=== PATIENT | male | born 1930 ===

== ENCOUNTER 2017-10-19 09:19 | Outpatient (RCR) | payer MEDICARE, OTHER ==
[~2017-10-19 09:19] MED LIST: ALLO-2 PO; AMLO-96 PO; AMLO-99 PO; ASPI-757 PO; BLOO-725 PO; DOCU-202 PO; DOCU-416 PO; ENAL20TA99 PO; HYDR-2966 PO; METF-411 PO; METXR500 PO; NYST15CR33 TP; OXYC-854 PO; PER PO; SIMV-49 PO; SITA100T PO; TAMS0.4C70 PO; TRIA15OI20 TP
[2017-10-19 09:41] VITALS: BP 157/66
--- NOTE | 2017-10-19 12:02 | ONC Progress Note - NP.Halsey ---
Patient History Date of Service Oct 19, 2017 Reason For Visit/HPI Patient is seen today for follow-up of his malignant melanoma of the scalp. Patient reports that overall he is feeling well and has no symptoms such as shortness of breath, cough, nausea or vomiting, diarrhea or constipation. He reports that his has been ill and he has been her care provider. He was scheduled to follow with Dr. Alvarez next week and this appointment was rescheduled to the end of November. Patient previously has followed with Dr. Villarreal for his melanoma resection of the scalp. Patient does have a keratotic area on his scalp that is itchy. He reports that he cannot visualize the top of his head very well. 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 The patient has been seen by Dr. Gallagher, his territory service representative, who did a shave biopsy of this pigmented lesion of the scalp on June 30, 2016, and the pathology came back positive for malignant melanoma, nodular type, with at least 2.7 mm Breslow depth, at least Yonathan level IV. No lymphovascular invasion. No perineural invasion. Ulceration was present. Surgical margins with tumor extending to the deep peripheral margin. It was staged at least pT2b Nx Mx. The patient after that had been seen by Dr. Denson for wide local excision and sentinel lymph node biopsy. He had wide surgical excision on August 01, 2016 and the pathology came back positive for superficial spreading melanoma extending to within 0.5 cm of the closest lateral margin. On the August, the patient had wide excision with skin graft and sentinel lymph node biopsy and six lymph nodes were negative for metastasis and the wide surgical excision showed superficial spreading melanoma present to within 0.1 cm of the lateral margin with atypical melanocytes present at the lateral margin. He ended by having re-excision on September 15, 2016 and final diagnosis was negative for residual malignancy. Tumor was staged as stage 2b (pT3b pN0 cM0). Patient has 2 hyperpigmented areas on the scalp outside the surgical resection area that are currently being monitored. I will refer patient to Dr. Villarreal today for further evaluation as I believe it has increased in size Medical History Family History: FH: cancer MOTHER, , Age:85 Psychosocial History Social History He is with 3 children. He is retired teacher. He denies any abuse of tobacco alcohol or drugs Smoking History: No Smoking Status: Never Smoker Exposure to Second Hand Smoke?: No Medications and Allergies Reported Medications Hydrochlorothiazide (HYDROCHLOROTHIAZIDE) 25 Mg Tablet, 1 TAB PO QDAY, TAB 08/05/16 Simvastatin (SIMVASTATIN) 20 Mg Tablet, 20 MG PO HS, TAB 08/05/16 Sitagliptin Phosphate (JANUVIA) 100 Mg Tablet, 100 MG PO QDAY 08/05/16 Allopurinol (Allopurinol) 300 Mg Tablet, 1 TAB PO QDAY 08/05/16 Amlodipine Besylate (AMLODIPINE BESYLATE) 10 Mg Tablet, 5 TAB PO QDAY, TAB 08/05/16 Enalapril Maleate (ENALAPRIL MALEATE) 20 Mg Tablet, 20 MG PO BID 08/05/16 Tamsulosin Hcl (TAMSULOSIN HCL) 0.4 Mg Cap.er.24h, 0.4 MG PO QDAY, CAP 08/05/16 Metformin Hcl (METFORMIN HCL) 500 Mg Tablet, 2 TAB PO BID, TAB 08/05/16 Aspirin (ASPIRIN) 325 Mg Tablet, 325 MG PO QDAY, TAB 08/05/16 Blood Sugar Diagnostic (CONTOUR) 1 Each Strip, 1 STRIP PO Q3D, #50 10/19/15 Allergies: Coded Allergies: No Known Drug Allergies (Unverified , 09/01/16) Review of System/Physical Exam Review of Systems All Systems Reviewed/Normal: Yes, Except as Noted Hematologic: Positive for Fatigue (age related), Positive for Weakness (age related) Skin: Positive for Dry Skin (area on the top of the scalp that is dry and itchy.) Physical Exam Vital Signs Temperature: 97.2 Pulse: 90 BP Systolic: 157 BP Diastolic: 66 Respiratory Rate: 16 O2 SAT: 92 O2 Delivery: Height (inches) 66.54 Weight lb: 186 Weight oz: Weight Kg (Ladarius): Pain: 0 ECOG Score: 1 General: Stable, Well Developed, Well Nourished, Not In Acute Distress HEENT: No Trauma Neck: Supple Heart: Regular Rate (blood pressure is slightly elevated today), Regular Rhythm , No Gallops, Murmurs (patient has a grade 1 systolic murmur which she reports having since age 17) Abdomen: Soft and Nontender, No Hepatosplenomegaly, No Masses, Other (bowel sounds are active) Extremities: No Cyanosis, No Clubbing Lymphadenopathy: No Cervical, No Subclavicular, No Axillary Psychiatric: Mood appears normal, Affect appears normal Skin: Other (patient has a elevated keratotic area on top of the scalp outside the previous resection field. He also has a asymmetric hyperpigmented area outside of previous resection that appears to be slightly larger than last exam. ) Diagnostic Studies Diagnostic Studies Laboratory CBC drawn on 10/17/2017 at an outside clinic shows a white cell count of 7400, hemoglobin of 14.5, hematocrit 45.3, MCV 98, platelet level 221,000. His chemistry is unremarkable with exception of a random glucose of 145. Assessment and Plan Assessment & Plan 1. 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 The patient had initial biopsy on June 30, 2016 followed by wide surgical excision on August 01, 2016 which was followed by wide surgical excision and sentinel lymph node biopsy done on August 25, 2016 with reexcision for close margins on September 15, 2016. Final pathology was positive for malignant melanoma at least 2.7 mm Breslow thickness (Yonathan level at least 4). No lymphovascular invasion. No perineural invasion with positive ulceration. Melanoma was nodular type. Reexcision came back negative for residual malignancy. Six lymph nodes were negative for metastasis. Given his performance status the patient was not considered candidate for interferon therapy. On exam today patient has a asymmetrical hyperpigmented area just outside of the resection area that appears to be slightly larger than previous exam. Patient previously had 2 dark hyperpigmented areas that we have been monitoring. I will refer patient to Dr. Villarreal for evaluation. Patient is scheduled to follow with Dr. Alvarez the end of November for a full body exam. Patient will follow in three months with CBC and chem panel at that time. He will continue to follow with primary care Vernell Concepcion and Dr. Alvarez as scheduled. 2. Hypertension on treatment. And adjusted by primary care. Slightly elevated today. She has been referred to primary care for evaluation 3. Diabetes mellitus on treatment. Managed by primary 4. Gout on allopurinol. No symptoms noted today 5. Hypercholesterolemia on treatment. Managed by primary PLAN 1. Continue treatment. 2. Patient to return in three months with CBC and chem panel. 3. Patient is to contact us for any new concerns or complaints. 4. For all to Dr. Villarreal for evaluation of 2 areas on the scalp. I personally spent a total of 20 minutes. Of that 20 minutes was counseling/ coordination of patient's care. See my note above for details. Copies to: VERNELL CONCEPCION; JUAN DENSON MD, NANCY J FNP-BC, ONC Oct 19, 2017 12:02
== END 2018-01-16 ==
LOC: ONC 09:19
PROVIDERS: ATTEND Internal Medicine Hematology
DX: Z85.828 Personal history of other malignant neoplasm of skin (principal); I10 Essential (primary) hypertension; E78.00 Pure hypercholesterolemia, unspecified; M10.9 Gout, unspecified; R21 Rash and other nonspecific skin eruption; R51 Headache; Z79.82 Long term (current) use of aspirin; Z79.899 Other long term (current) drug therapy; R53.83 Other fatigue; R53.1 Weakness
CPT/HCPCS: 99212

== ENCOUNTER → 2017-11-07 | Outpatient (CLI) | payer MEDICARE, OTHER ==
[~2017-11-07] MED LIST changes: +METF-410 PO; -METF-411 PO
== END ==
LOC: LAB 11:32
PROVIDERS: ATTEND Surgery
DX: L82.1 Other seborrheic keratosis (principal)
CPT/HCPCS: 88305

== ENCOUNTER → 2018-01-12 | Outpatient (CLI) | payer MEDICARE, OTHER ==
[~2018-01-12] MED LIST changes: +ATROPINE SUL 1 MG/ML VIAL IVP PRN; +DOBUTamine/DEXT 250 MG/250 ML 250 ML IVPB ONE; -METF-410 PO; +METF-411 PO; +METOPROLOL TART 5 MG/5 ML VIAL IVP PRN; +NS 0.9% 20 ML SDV IVP PRN
--- NOTE | 2018-01-12 12:14 | RT STRESS TEST REPORT ---
FAC[place]: [facility] [place] NAME: JONES HAGAN : [id number] MR: [id number] V: [id number] EXAM DATE: ORDERING PHYSICIAN: VERNELL VARGAS TECHNOLOGIST: Chantal Acquisition Time: 2018-01-12 11:26:00 Total Exercise Time: 00:08:33 Test Indications: Murmur Medications: enalapril allopurinol tamsolosin simvastatin hydrochlorothiazide amlodipine gimpiride aspirin Protocol: DOBUTAMINE Max HR: 122 BPM 91% of Pred: 134 BPM Max BP: 161/054 mmHG Max Work Load: 1.0 METS Confirmed by JOSELITO SIMPSON ([id number]) on 01/12/2018 12:14:39 PM Referred By: Vernell Vargas Overread By: JOSELITO SIMPSON
== END ==
LOC: RAD 01-11 01:21
PROVIDERS: ATTEND Nurse Practitioner Family
DX: I38 Endocarditis, valve unspecified (principal); I49.9 Cardiac arrhythmia, unspecified
CPT/HCPCS: 93017; 93325; 93350

== ENCOUNTER 2018-01-18 09:30 | Outpatient (RCR) | payer MEDICARE, OTHER ==
[~2018-01-18 09:30] MED LIST changes: -ATROPINE SUL 1 MG/ML VIAL IVP PRN; -DOBUTamine/DEXT 250 MG/250 ML 250 ML IVPB ONE; -METOPROLOL TART 5 MG/5 ML VIAL IVP PRN; -NS 0.9% 20 ML SDV IVP PRN
[2018-01-18 09:35] VITALS: BP 181/72
--- NOTE | 2018-01-18 17:17 | ONCOLOGY FOLLOW UP NOTE ---
EVENT DATE: January 18, 2018 DIAGNOSES 1. 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 2. Hypertension. 3. Diabetes mellitus. 4. Gout. 5. Hypercholesterolemia. CHIEF COMPLAINT Patient is here today for followup of his malignant melanoma of the scalp. ONCOLOGY HISTORY The patient is an 88-year-old male who was seen by his wastewater treatment plant instructor for a pigmented lesion of the scalp. The patient has been seen by Dr. Gallagher, his wastewater treatment plant instructor, who did a shave biopsy of this pigmented lesion of the scalp on June 30, 2016, and the pathology came back positive for malignant melanoma, nodular type, with at least 2.7 mm Breslow depth, at least Yonathan level IV. No lymphovascular invasion. No perineural invasion. Ulceration was present. Surgical margins with tumor extending to the deep peripheral margin. It was staged at least pT2b Nx Mx. The patient after that had been seen by Dr. Mars for wide local excision and sentinel lymph node biopsy. He had wide surgical excision on August 01, 2016 and the pathology came back positive for superficial spreading melanoma extending to within 0.5 cm of the closest lateral margin. On the August, the patient had wide excision with skin graft and sentinel lymph node biopsy and six lymph nodes were negative for metastasis and the wide surgical excision showed superficial spreading melanoma present to within 0.1 cm of the lateral margin with atypical melanocytes present at the lateral margin. He ended by having re-excision on September 15, 2016 and final diagnosis was negative for residual malignancy. So, the patient's tumor was staged as stage 2b (pT3b pN0 cM0). HISTORY OF PRESENT ILLNESS Patient is here today for followup of his malignant melanoma of the scalp. He is doing currently and totally asymptomatic except for increased frequency of urine which is chronic for him. PAST MEDICAL HISTORY 1. Type 2 diabetes. 2. Gout. 3. Hypercholesterolemia. 4. Hypertension. PAST SURGICAL HISTORY 1. Tonsillectomy. 2. Cholecystectomy. 3. Resection of melanoma of the scalp in 2016. FAMILY HISTORY Mother had uterine cancer. SOCIAL HISTORY The patient is with three children. He is a retired teacher. He denies any abuse of tobacco, alcohol or drugs. CURRENT MEDICATIONS 1. Hydrochlorothiazide 25 mg tablet daily. 2. Simvastatin 20 mg daily. 3. Januvia 100 mg daily. 4. Allopurinol 300 mg daily. 5. Amlodipine 10 mg daily. 6. Enalapril 20 mg twice daily. 7. Tamsulosin 0.4 mg daily. 8. Metformin 1000 mg twice daily. 9. Aspirin 325 mg daily. ALLERGIES No known drug allergies. REVIEW OF SYSTEMS CONSTITUTIONAL: No appetite or weight change. No fever, chills or sweating. No recent infection. HEENT: Ears: No tinnitus or hearing problem. Nose: No nasal discharge or epistaxis. Throat: No sore throat or mouth ulcers. Eyes: No diplopia or visual changes. RESPIRATORY: No shortness of breath. No cough, expectoration or hemoptysis. CARDIOVASCULAR: No chest pain, orthopnea, or paroxysmal nocturnal dyspnea (PND) . No edema. No palpitations. GASTROINTESTINAL: No nausea or vomiting. No diarrhea or constipation. No change in bowel movements. No heartburn or swallowing difficulties. No abdominal pain. No jaundice. No hematemesis, melena or rectal bleeding. GENITOURINARY: He has increased frequency of urine. MUSCULOSKELETAL: The patient has pain in the right shoulder. NEUROLOGICAL: No tingling or numbness in the hands or feet. No headaches or convulsions. HEMATOLOGIC/LYMPHATIC: He bruises easily. SKIN: No skin rash or lumps. PSYCHIATRIC: No anxiety or depression. PHYSICAL EXAMINATION GENERAL: Looks stable. Well-developed, well-nourished, and in no acute distress. VITAL SIGNS: Blood pressure 181/72, pulse 88 per minute, respirations 16 per minute, temperature 96.9, pulse ox 93% on room air. HEENT: Head: Atraumatic. No sinus tenderness to palpation. Eyes: No icterus or conjunctivitis. Mouth and throat: No oral thrush or mucositis. NECK: Supple. No cervical or supraclavicular lymphadenopathy. LUNGS: Clear to auscultation and percussion bilaterally. HEART: Regular rate and rhythm. No gallops, murmurs, clicks or rubs. ABDOMEN: Soft and lax. No tenderness. No hepatosplenomegaly. No masses. EXTREMITIES: No cyanosis, clubbing or edema. LYMPHATICS: No peripheral lymphadenopathy. NEUROLOGICAL: Conscious, alert and oriented times three. No focal motor or sensory deficits. PSYCHIATRIC: Mood and affect appear normal. SKIN: The skin graft is healing well. There are some skin pigmentation areas of his scalp. DIAGNOSTIC DATA CBC showed a white count of 7.1, hemoglobin 13.9, hematocrit 41.6, platelets 185 ,000. Chem panel is totally normal except blood sugar 180. Other parameters are normal. ASSESSMENT 1. 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 The patient had initial biopsy on June 30, 2016 followed by wide surgical excision on August 01, 2016, followed by wide surgical excision and sentinel lymph node biopsy done August 25, 2016 with reexcision for close margins on September 15, 2016. Final pathology was positive for malignant melanoma at least 2.7 mm Breslow thickness (Yonathan level at least 4). No lymphovascular invasion. No perineural invasion with positive ulceration. Melanoma was nodular type. Reexcision came back negative for residual malignancy. Six lymph nodes were negative for metastasis. Given his performance status the patient is not a candidate for interferon therapy and he is doing fine currently. He is in complete remission so far. Patient was advised to continue followup with his wastewater treatment plant instructor. I am planning to continue surveillance. I will see him again in three months with CBC and chem panel at that time. 2. Hypertension on treatment. 3. Diabetes mellitus on treatment. 4. Gout on allopurinol. 5. Hypercholesterolemia on treatment. PLAN 1. Continue followup. 2. Patient to return in three months with CBC and chem panel. 3. Patient is to contact us for any new concern or complaints. CHAPO
== END 2018-03-29 13:48 | disposition home or self-care (01) ==
LOC: ONC 09:30
PROVIDERS: ATTEND Internal Medicine Hematology
DX: Z85.828 Personal history of other malignant neoplasm of skin (principal); I10 Essential (primary) hypertension; E78.00 Pure hypercholesterolemia, unspecified; M10.9 Gout, unspecified; E11.9 Type 2 diabetes mellitus without complications; Z79.899 Other long term (current) drug therapy
CPT/HCPCS: 99212

== ENCOUNTER 2018-04-26 09:21 | Outpatient (RCR) | payer MEDICARE, OTHER ==
[~2018-04-26 09:21] MED LIST changes: +AMLO-111 PO; +AMLO-113 PO; -AMLO-96 PO; -AMLO-99 PO; -METF-411 PO; +METF-450 PO
[2018-04-26 09:27] VITALS: BP 163/66
--- NOTE | 2018-04-26 16:55 | ONCOLOGY FOLLOW UP NOTE ---
EVENT DATE: April 26, 2018 DIAGNOSES 1. 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 2. Hypertension. 3. Diabetes mellitus. 4. Gout. 5. Hypercholesterolemia. CHIEF COMPLAINT Patient is here today for followup of his malignant melanoma of the scalp. ONCOLOGY HISTORY The patient is an 88-year-old male who was seen by his teradata developer for a pigmented lesion of the scalp. The patient has been seen by Dr. Gallagher, his teradata developer, who did a shave biopsy of this pigmented lesion of the scalp on June 30, 2016, and the pathology came back positive for malignant melanoma, nodular type, with at least 2.7 mm Breslow depth, at least Yonathan level IV. No lymphovascular invasion. No perineural invasion. Ulceration was present. Surgical margins with tumor extending to the deep peripheral margin. It was staged at least pT2b Nx Mx. The patient after that had been seen by Dr. Mars for wide local excision and sentinel lymph node biopsy. He had wide surgical excision on August 01, 2016 and the pathology came back positive for superficial spreading melanoma extending to within 0.5 cm of the closest lateral margin. On the August, the patient had wide excision with skin graft and sentinel lymph node biopsy and six lymph nodes were negative for metastasis and the wide surgical excision showed superficial spreading melanoma present to within 0.1 cm of the lateral margin with atypical melanocytes present at the lateral margin. He ended by having re-excision on September 15, 2016 and final diagnosis was negative for residual malignancy. So, the patient's tumor was staged as stage 2b (pT3b pN0 cM0). HISTORY OF PRESENT ILLNESS Patient is here today for followup of his malignant melanoma of the scalp. He is doing fine currently and he is totally asymptomatic. PAST MEDICAL HISTORY 1. Type 2 diabetes. 2. Gout. 3. Hypercholesterolemia. 4. Hypertension. PAST SURGICAL HISTORY 1. Tonsillectomy. 2. Cholecystectomy. 3. Resection of melanoma of the scalp in 2016. FAMILY HISTORY Mother had uterine cancer. SOCIAL HISTORY The patient is with three children. He is a retired teacher. He denies any abuse of tobacco, alcohol or drugs. CURRENT MEDICATIONS 1. Hydrochlorothiazide 25 mg tablet daily. 2. Simvastatin 20 mg daily. 3. Januvia 100 mg daily. 4. Allopurinol 300 mg daily. 5. Amlodipine 10 mg daily. 6. Enalapril 20 mg twice daily. 7. Tamsulosin 0.4 mg daily. 8. Metformin 1000 mg twice daily. 9. Aspirin 325 mg daily. ALLERGIES No known drug allergies. REVIEW OF SYSTEMS CONSTITUTIONAL: No appetite or weight change. No fever, chills or sweating. No recent infection. HEENT: Ears: No tinnitus or hearing problem. Nose: No nasal discharge or epistaxis. Throat: No sore throat or mouth ulcers. Eyes: No diplopia or visual changes. RESPIRATORY: No shortness of breath. No cough, expectoration or hemoptysis. CARDIOVASCULAR: No chest pain, orthopnea, or paroxysmal nocturnal dyspnea (PND). No edema. No palpitations. GASTROINTESTINAL: No nausea or vomiting. No diarrhea or constipation. No change in bowel movements. No heartburn or swallowing difficulties. No abdominal pain. No jaundice. No hematemesis, melena or rectal bleeding. GENITOURINARY: No hematuria or dysuria. MUSCULOSKELETAL: No pain in the muscles, joints or bones. NEUROLOGICAL: No tingling or numbness in the hands or feet. No headaches or convulsions. HEMATOLOGIC/LYMPHATIC: No bleeding or easy bruising. No weakness or fatigue. No enlarged lymph nodes. SKIN: No skin rash or lumps. PSYCHIATRIC: No anxiety or depression. PHYSICAL EXAMINATION GENERAL: Looks stable. Well-developed, well-nourished, and in no acute distress. VITAL SIGNS: Blood pressure 163/66, pulse 92 per minute, respirations 16 per minute, temperature 96.9, pulse ox 94% on room air. HEENT: Head: Atraumatic. No sinus tenderness to palpation. Eyes: No icterus or conjunctivitis. Mouth and throat: No oral thrush or mucositis. NECK: Supple. No cervical or supraclavicular lymphadenopathy. LUNGS: Clear to auscultation and percussion bilaterally. HEART: Regular rate and rhythm. No gallops, murmurs, clicks or rubs. ABDOMEN: Soft and lax. No tenderness. No hepatosplenomegaly. No masses. EXTREMITIES: No cyanosis, clubbing or edema. LYMPHATICS: No peripheral lymphadenopathy. NEUROLOGICAL: Conscious, alert and oriented times three. No focal motor or sensory deficits. PSYCHIATRIC: Mood and affect appear normal. SKIN: The skin graft is healing well. There are some skin pigmentation areas of his scalp. DIAGNOSTIC DATA CBC showed a white count of 8.9, hemoglobin 14.3, hematocrit 42.9, platelets 207,000. Chem panel totally normal except blood sugar 158. ASSESSMENT 1. 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 The patient had initial biopsy done June 30, 2016 followed by wide surgical excision on August 01, 2016, followed by wide surgical excision and sentinel lymph node biopsy done August 25, 2016 with reexcision for close margins on September 15, 2016. Final pathology was positive for malignant melanoma at least 2.7 mm Breslow thickness (Yonathan level at least 4). No lymphovascular invasion. No perineural invasion with positive ulceration. Melanoma was nodular type. Reexcision came back negative for residual malignancy. Six lymph nodes were negative for metastasis. As the patient has negative lymph nodes, he is not a candidate for interferon therapy. Patient is doing very well currently. He continues to follow with Dr. Garcia, his teradata developer and I advised him to continue that. I will see him again in four months with CBC and chem panel at that time. . 2. Hypertension on treatment. 3. Diabetes mellitus on treatment. 4. Gout on allopurinol. 5. Hypercholesterolemia on treatment. PLAN 1. Continue followup. 2. Patient to return in four months with CBC and chem panel. 3. Patient is to contact us for any new concerns or complaints. CHAPO
== END 2018-07-24 ==
LOC: ONC 09:21
PROVIDERS: ATTEND Internal Medicine Hematology
DX: Z85.820 Personal history of malignant melanoma of skin (principal); I10 Essential (primary) hypertension; E11.9 Type 2 diabetes mellitus without complications; E78.00 Pure hypercholesterolemia, unspecified; M10.9 Gout, unspecified; Z79.899 Other long term (current) drug therapy
CPT/HCPCS: 99212

== ENCOUNTER 2018-08-23 12:58 | Outpatient (RCR) | payer MEDICARE, OTHER ==
[~2018-08-23 12:58] MED LIST changes: -AMLO-111 PO; -AMLO-113 PO; +AMLO-125 PO; +AMLO-127 PO
[2018-08-23 13:06] VITALS: BP 153/68
[2018-08-23] MEDS ORDERED: FURO-45 PO (13:09)
[2018-08-23] MEDS ORDERED: METO25TA23 PO (13:09)
--- NOTE | 2018-08-23 19:21 | [facility] ONCOLOGY NOTE ---
EVENT DATE: August 23, 2018 DIAGNOSES 1. Stage IIIB (pT3b pN0 cM0) malignant melanoma of the vertex of the scalp. 2. Hypertension. 3. Diabetes mellitus. 4. Gout. 5. Hypercholesterolemia. CHIEF COMPLAINT Patient is here today for followup of his malignant melanoma of the scalp. ONCOLOGY HISTORY The patient is an 88-year-old male who was seen by his supervisor acoustical tile carpenters for a pigmented lesion of the scalp. The patient has been seen by Dr. Gallagher, his supervisor acoustical tile carpenters, who did a shave biopsy of this pigmented lesion of the scalp on June 30, 2016, and the pathology came back positive for malignant melanoma, nodular type, with at least 2.7 mm Breslow depth and at least Yonathan level IV. No lymphovascular invasion. No perineural invasion. Ulceration was present. Surgical margins with tumor extending to the deep peripheral margin. It was staged at least pT2b NX MX. The patient after that had been seen by Dr. Mars for wide local excision and sentinel lymph node biopsy. He had wide surgical excision on August 01, 2016, and the pathology came back positive for superficial spreading melanoma extending to within 0.5 cm of the closest lateral margin. On the August, the patient had wide excision with skin graft and sentinel lymph node biopsy, and six lymph nodes were negative for metastasis. The wide surgical excision showed superficial spreading melanoma present to within 0.1 cm of the lateral margin with atypical melanocytes present at the lateral margin. He ended by having re-excision on September 15, 2016, and final diagnosis was negative for residual malignancy. So, the patient's tumor was staged as stage IIB (pT3b pN0 cM0). HISTORY OF PRESENT ILLNESS Patient is here today for followup of his malignant melanoma of the scalp. He is doing fine currently except for urinary incontinence and fatigue. PAST MEDICAL HISTORY 1. Type 2 diabetes. 2. Gout. 3. Hypercholesterolemia. 4. Hypertension. PAST SURGICAL HISTORY 1. Tonsillectomy. 2. Cholecystectomy. 3. Resection of melanoma of the scalp in 2016. FAMILY HISTORY Mother had uterine cancer. SOCIAL HISTORY The patient is with three children. He is a retired teacher. He denies any abuse of tobacco, alcohol, or drugs. CURRENT MEDICATIONS 1. Hydrochlorothiazide 25 mg tablet daily. 2. Simvastatin 20 mg daily. 3. Januvia 100 mg daily. 4. Allopurinol 300 mg daily. 5. Amlodipine 10 mg daily. 6. Enalapril 20 mg twice daily. 7. Tamsulosin 0.4 mg daily. 8. Metformin 1000 mg twice daily. 9. Aspirin 325 mg daily. ALLERGIES No known drug allergies. REVIEW OF SYSTEMS CONSTITUTIONAL: No appetite or weight change. No fever, chills, or sweating. No recent infection. HEENT: Ears: No tinnitus or hearing problem. Nose: No nasal discharge or epistaxis. Throat: No sore throat or mouth ulcers. Eyes: No diplopia or visual changes. RESPIRATORY: No shortness of breath. No cough, expectoration, or hemoptysis. CARDIOVASCULAR: No chest pain, orthopnea, or paroxysmal nocturnal dyspnea (PND). No edema. No palpitations. GASTROINTESTINAL: No nausea or vomiting. No diarrhea or constipation. No change in bowel movements. No heartburn or swallowing difficulties. No abdominal pain. No jaundice. No hematemesis, melena, or rectal bleeding. GENITOURINARY: He has incontinence of urine. MUSCULOSKELETAL: No pain in the muscles, joints, or bones. NEUROLOGICAL: No tingling or numbness in the hands or feet. No headaches or convulsions. HEMATOLOGIC/LYMPHATIC: No bleeding or easy bruising. He is weak, tired, and fatigued. No enlarged lymph nodes. SKIN: No skin rash or lumps. PSYCHIATRIC: No anxiety or depression. PHYSICAL EXAMINATION GENERAL: Looks stable. Well developed, well nourished, and in no acute distress. VITAL SIGNS: Blood pressure 153/68, pulse 64 per minute, respirations 16 per minute, temperature 97.1, pulse oximetry 96% on room air. HEENT: Head: Atraumatic. No sinus tenderness to palpation. Eyes: No icterus or conjunctivitis. Mouth and throat: No oral thrush or mucositis. NECK: Supple. No cervical or supraclavicular lymphadenopathy. LUNGS: Clear to auscultation and percussion bilaterally. HEART: Regular rate and rhythm. No gallops, murmurs, clicks, or rubs. ABDOMEN: Soft and lax. No tenderness. No hepatosplenomegaly. No masses. EXTREMITIES: No cyanosis, clubbing, or edema. LYMPHATICS: No peripheral lymphadenopathy. NEUROLOGICAL: Conscious, alert, and oriented times three. No focal motor or sensory deficits. PSYCHIATRIC: Mood and affect appear normal. SKIN: No skin rash, bruise, or purpuric eruption. DIAGNOSTIC DATA CBC showed white count 9.5, hemoglobin 13.6, hematocrit 41.5, platelets 186,000. Chem panel totally normal except blood sugar 192, BUN 33, creatinine 1.32. Other parameters are normal. Iron studies including ferritin are all within the normal range. ASSESSMENT 1. 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 The patient had initial biopsy done June 30, 2016, followed by wide surgical excision on August 01, 2016, followed by wide surgical excision and sentinel lymph node biopsy August 25, 2016, with reexcision for close margin on September 15, 2016. Final pathology was positive for malignant melanoma at least 2.7 mm Breslow thickness (Yonathan level at least 4). No lymphovascular invasion, no perineural invasion, and with positive ulceration. Melanoma was nodular type. Reexcision came back negative for residual malignancy. Six lymph nodes were negative for metastasis. Patient is not a candidate for adjuvant treatment given that he has negative lymphadenopathy. He is currently in complete remission. He continues to follow with Dr. Gallagher, his supervisor ac[employer]. I am planning to see him again in four months with CBC, chemistry panel, and LDH. 2. Hypertension, on treatment. There is some modification of his treatment. 3. Diabetes mellitus, on treatment. 4. Gout, on allopurinol. 5. Hypercholesterolemia, on treatment. PLAN 1. Continue followup. 2. Patient to return in four months with CBC, chem panel, and LDH. 3. Patient is to contact us for any new concern or complaints. [facility]
== END 2018-10-08 13:24 | disposition home or self-care (01) ==
LOC: ONC 12:58
PROVIDERS: ATTEND Internal Medicine Hematology
DX: Z08 Encounter for follow-up examination after completed treatment for malignant neoplasm (principal); I10 Essential (primary) hypertension; E11.9 Type 2 diabetes mellitus without complications; E78.00 Pure hypercholesterolemia, unspecified; M10.9 Gout, unspecified; Z79.899 Other long term (current) drug therapy; Z85.820 Personal history of malignant melanoma of skin
CPT/HCPCS: 99212

== ENCOUNTER 2019-01-04 11:00 | Outpatient (RCR) | payer MEDICARE, OTHER ==
[~2019-01-04 11:00] MED LIST changes: +FURO-45 PO; +METO25TA23 PO
[2019-01-04 11:01] VITALS: BP 175/75
--- NOTE | 2019-01-04 19:55 | ONCOLOGY FOLLOW UP NOTE ---
EVENT DATE: January 04, 2019 DIAGNOSES 1. Stage IIIB (pT3b pN0 cM0) malignant melanoma of the vertex of the scalp. 2. Hypertension. 3. Diabetes mellitus. 4. Gout. 5. Hypercholesterolemia. CHIEF COMPLAINT Patient is here today for followup of his malignant melanoma of the scalp. ONCOLOGY HISTORY The patient is an 88-year-old male who was seen by his signal system testing maintainer for a pigmented lesion of the scalp. The patient has been seen by Dr. Gallagher, his signal system testing maintainer, who did a shave biopsy of this pigmented lesion of the scalp on June 30, 2016, and the pathology came back positive for malignant melanoma, nodular type, with at least 2.7 mm Breslow depth and at least Yonathan level IV. No lymphovascular invasion. No perineural invasion. Ulceration was present. Surgical margins with tumor extending to the deep peripheral margin. It was staged at least pT2b NX MX. The patient after that had been seen by Dr. Mars for wide local excision and sentinel lymph node biopsy. He had wide surgical excision on August 01, 2016, and the pathology came back positive for superficial spreading melanoma extending to within 0.5 cm of the closest lateral margin. On the August, the patient had wide excision with skin graft and sentinel lymph node biopsy, and six lymph nodes were negative for metastasis. The wide surgical excision showed superficial spreading melanoma present to within 0.1 cm of the lateral margin with atypical melanocytes present at the lateral margin. He ended by having re-excision on September 15, 2016, and final diagnosis was negative for residual malignancy. So, the patient's tumor was staged as stage IIB (pT3b pN0 cM0). HISTORY OF PRESENT ILLNESS Patient is here today for followup of his malignant melanoma of the scalp. He is doing fine currently, and he is totally asymptomatic except for increased frequency of urine. PAST MEDICAL HISTORY 1. Type 2 diabetes. 2. Gout. 3. Hypercholesterolemia. 4. Hypertension. PAST SURGICAL HISTORY 1. Tonsillectomy. 2. Cholecystectomy. 3. Resection of melanoma of the scalp in 2016. FAMILY HISTORY Mother had uterine cancer. SOCIAL HISTORY The patient is with three children. He is a retired teacher. He denies any abuse of tobacco, alcohol, or drugs. CURRENT MEDICATIONS 1. Hydrochlorothiazide 25 mg tablet daily. 2. Simvastatin 20 mg daily. 3. Januvia 100 mg daily. 4. Allopurinol 300 mg daily. 5. Amlodipine 10 mg daily. 6. Enalapril 20 mg twice daily. 7. Tamsulosin 0.4 mg daily. 8. Metformin 1000 mg twice daily. 9. Aspirin 325 mg daily. ALLERGIES No known drug allergies. REVIEW OF SYSTEMS CONSTITUTIONAL: No appetite or weight change. No fever, chills, or sweating. No recent infection. HEENT: Ears: No tinnitus or hearing problem. Nose: No nasal discharge or epistaxis. Throat: No sore throat or mouth ulcers. Eyes: No diplopia or visual changes. RESPIRATORY: No shortness of breath. No cough, expectoration, or hemoptysis. CARDIOVASCULAR: No chest pain, orthopnea, or paroxysmal nocturnal dyspnea (PND). No edema. No palpitations. GASTROINTESTINAL: No nausea or vomiting. No diarrhea or constipation. No change in bowel movements. No heartburn or swallowing difficulties. No abdominal pain. No jaundice. No hematemesis, melena, or rectal bleeding. GENITOURINARY: No hematuria or dysuria. MUSCULOSKELETAL: No pain in the muscles, joints, or bones. NEUROLOGIC: No tingling or numbness in the hands or feet. No headaches or convulsions. HEMATOLOGIC/LYMPHATIC: No bleeding or easy bruising. No weakness or fatigue. No enlarged lymph nodes. SKIN: No skin rash or lumps. PSYCHIATRIC: No anxiety or depression. PHYSICAL EXAMINATION GENERAL: Looks stable. Well developed, well nourished, and in no acute distress. VITAL SIGNS: Blood pressure 175/75, pulse 63 per minute, respirations 16 per minute, temperature 97.1, pulse ox 91% on room air. HEENT: Head: Atraumatic. No sinus tenderness to palpation. Eyes: No icterus or conjunctivitis. Mouth and Throat: No oral thrush or mucositis. NECK: Supple. No cervical or supraclavicular lymphadenopathy. LUNGS: Clear to auscultation and percussion bilaterally. HEART: Regular rate and rhythm. No gallops, murmurs, clicks, or rubs. ABDOMEN: Soft and lax. No tenderness. No hepatosplenomegaly. No masses. EXTREMITIES: No cyanosis, clubbing, or edema. LYMPHATICS: No peripheral lymphadenopathy. NEUROLOGIC: Conscious, alert, and oriented times three. No focal motor or sensory deficits. PSYCHIATRIC: Mood and affect appear normal. SKIN: No skin rash, bruise, or purpuric eruption. DIAGNOSTIC DATA CBC showed white count 8.9, hemoglobin 14.6, hematocrit 45.1, platelets 199,000. Chem panel is totally normal except for blood sugar 154. Other parameters are normal. ASSESSMENT 1. 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 Patient had initial biopsy done June 30, 2016, followed by wide surgical excision on August 01, 2016, followed by wide surgical excision and sentinel lymph node biopsy done August 25, 2016, with reexcision of a close margin which was done on September 15, 2016. Final pathology was positive for malignant melanoma at least 2.7 mm Breslow thickness (Yonathan level was at least IV). No lymphovascular invasion, no perineural invasion, and with positive ulceration. Melanoma was nodular type. Reexcision came back negative for residual malignancy. Six lymph nodes were negative for metastasis. Patient is not a candidate for adjuvant treatment given his negative lymphadenopathy, also his general condition and age. He is currently in complete remission, doing very well. He continues to follow with Dr. Gallagher, his signal system testing maintainer. I am planning to see him again in four months with CBC and chemistry panel, and I will advise the patient to contact us for any new concern or complaints. I am planning also to check his LDH with his every visit. 2. Hypertension, on treatment. 3. Diabetes mellitus, on treatment. 4. Gout, on allopurinol. 5. Hypercholesterolemia, on treatment. PLAN 1. Continue followup. 2. Patient to return in four months with CBC, chem panel, and LDH. 3. Patient is to contact us for any new concerns or complaints. [facility]
== END 2019-02-04 13:29 | disposition home or self-care (01) ==
LOC: ONC 11:00
PROVIDERS: ATTEND Internal Medicine Hematology
DX: Z85.820 Personal history of malignant melanoma of skin (principal); I10 Essential (primary) hypertension; E11.9 Type 2 diabetes mellitus without complications; M10.9 Gout, unspecified; E78.00 Pure hypercholesterolemia, unspecified; Z79.899 Other long term (current) drug therapy
CPT/HCPCS: 99212